=== PATIENT | female | born 2000 | race Two or more races ===

== ENCOUNTER 2025-06-25 14:29 | Inpatient (IN) | payer OTHER ==
[~2025-06-25] VITALS: Ht 175.3 cm; Wt 72.7 kg
[2025-06-25] MEDS ORDERED: ONDANSETRON HCL 4 MG/2 ML VIAL IVP PRN (15:00)
[2025-06-25] MEDS ORDERED: MAGNESIUM HYDROXIDE SUSPENSION 30 ML UDCUP PO PRN (15:00)
[2025-06-25] MEDS ORDERED: SODIUM CHLORIDE 0.9% 1,000 ML IV ONE (15:00)
[2025-06-25] MEDS ORDERED: CLON-592 PO (15:23)
[2025-06-25 15:38] LABS: PLATELET COUNT (AUTO) 290 K/uL (150-450); RED BLOOD CELL COUNT(AUTO) 4.75 MIL/uL (4.00-5.20); RED CELL DISTRIBUTION WIDTH 17.8 % (11.5-14.5); WHITE BLOOD COUNT (AUTO) 6.0 K/uL (4.5-11.0)
[2025-06-25 15:45] LABS: CALCIUM, TOTAL 8.4 mg/dL (8.8-10.5); CREATININE 0.73 mg/dL (0.60-1.30); GLOMERULAR FILTR. RATE CALC > 60 mL/min (>60); GLUCOSE,RANDOM 88 mg/dL (70-110); SODIUM SERUM 138 mmol/L (136-145); UREA NITROGEN, BLOOD 12 mg/dL (7-18)
[2025-06-25 15:51] LABS: ASPARTATE AMINOTRANSFERASE 16.0 U/L (15-37); TOTAL PROTEIN, SERUM 6.9 g/dL (6.4-8.2)
[2025-06-25 15:54] LABS: PLATELET MORPHOLOGY COMMENT GIANT PLTS PRESENT; RBC MORPHOLOGY COMMENT ABNORMAL RBC MORPH
[2025-06-25] MEDS: SODIUM CHLORIDE 0.9% 1,000 ML IV ONE (15:54)
[2025-06-25 15:58] LABS: PATHOLOGY REVIEW, DIFF YES
[2025-06-25] MEDS: FERROUS SULFATE 325 MG EC TABLET PO SCH (17:01)
[2025-06-25] MEDS: ACETAMINOPHEN 325 MG TABLET PO PRN (17:02)
[2025-06-25 20:30] VITALS: BP 93/61; PULSE 72; RESP 18; TEMP 97.9; O2SAT 100
[2025-06-26 04:25] VITALS: BP 106/69; PULSE 58; RESP 18; TEMP 98.2; O2SAT 99
[2025-06-26 06:40] LABS: PH,URINE DRUG SCREEN 7.0 (5.0-8.0)
[2025-06-26 06:47] LABS: ALCOHOL, URINE DRUG SCREEN NEGATIVE (NEGATIVE); AMPHET/METH SCREEN,URINE POSITIVE (NEGATIVE); BARBITURATE SCREEN, URINE NEGATIVE (NEGATIVE); CANNABINOID SCREEN,URINE NEGATIVE (NEGATIVE); COCAINE SCREEN,URINE NEGATIVE (NEGATIVE); METHADONE SCREEN, URINE NEGATIVE (NEGATIVE)
[2025-06-26 07:33] LABS: PLATELET COUNT (AUTO) 278 K/uL (150-450); RED BLOOD CELL COUNT(AUTO) 4.70 MIL/uL (4.00-5.20); RED CELL DISTRIBUTION WIDTH 18.4 % (11.5-14.5); WHITE BLOOD COUNT (AUTO) 5.5 K/uL (4.5-11.0)
[2025-06-26 07:49] LABS: RBC MORPHOLOGY COMMENT ABNORMAL RBC MORPH
[2025-06-26] MEDS ORDERED: ACETAMINOPHEN 325 MG TABLET PO PRN (08:30)
[2025-06-26] MEDS ORDERED: IBUPROFEN 600 MG TABLET PO PRN (08:30)
[2025-06-26] MEDS ORDERED: BACLOFEN 10 MG TABLET PO PRN (08:30)
[2025-06-26] MEDS ORDERED: DICYCLOMINE HCL 10 MG CAPSULE PO PRN (08:30)
[2025-06-26] MEDS ORDERED: ZOLPIDEM TARTRATE 5 MG TABLET PO PRN (08:30)
[2025-06-26] MEDS ORDERED: PROMETHAZINE HCL 25 MG TABLET PO PRN (08:30)
[2025-06-26] MEDS ORDERED: IPRATROPIUM BROMIDE 0.5 MG/2.5 ML NEB SOLUTION NEB PRN (08:30)
[2025-06-26] MEDS ORDERED: MAG HYDROX/ALUMINUM HYD/SIMETH ES 30 ML SUSPENSION UDCUP PO PRN (08:30)
[2025-06-26] MEDS ORDERED: BISACODYL 10 MG RECTAL RECTAL SUPPOSITORY PR PRN (08:30)
[2025-06-26] MEDS ORDERED: LOPERAMIDE HCL 2 MG/15 ML SUSPENSION UDCUP PO PRN (08:30)
[2025-06-26] MEDS ORDERED: MAGNESIUM HYDROXIDE SUSPENSION 30 ML UDCUP PO PRN (08:30)
[2025-06-26] MEDS ORDERED: ONDANSETRON HCL 4 MG/2 ML VIAL IVP PRN (08:30)
[2025-06-26] MEDS ORDERED: ALBUTEROL SULFATE 2.5 MG/0.5 ML NEB SOLUTION NEB PRN (08:30)
[2025-06-26 08:47] VITALS: BP 107/68; PULSE 56; RESP 18; TEMP 97.7; O2SAT 96
[2025-06-26] MEDS: FAMOTIDINE 20 MG TABLET PO SCH (10:25)
[2025-06-26] MEDS: SODIUM CHLORIDE 0.45% 1,000 ML IV SCH (10:26)
[2025-06-26] MEDS: PANTOPRAZOLE SODIUM 40 MG/VIAL IVP SCH (10:27)
[2025-06-26 12:10] VITALS: BP 106/70; PULSE 62; RESP 17; TEMP 98.1; O2SAT 98
[2025-06-26] MEDS: HEPARIN SODIUM,PORCINE 5,000 UNITS/ML VIAL SQ SCH (16:00)
[2025-06-26 19:48] VITALS: BP 100/60; PULSE 69; RESP 18; TEMP 97.3; O2SAT 95
[2025-06-26 23:17] VITALS: BP 105/61; PULSE 74; RESP 18; TEMP 97.7; O2SAT 98
[2025-06-26] MEDS: ZOLPIDEM TARTRATE 5 MG TABLET PO PRN (23:24)
[2025-06-27 04:18] VITALS: BP 110/64; PULSE 60; RESP 18; TEMP 97.3; O2SAT 100
[2025-06-27 05:08] LABS: HEPATITIS C AB (EIA) Non Reactive (Non Reactive)
[2025-06-27 08:00] VITALS: BP 108/65; PULSE 65; RESP 19; TEMP 98.2; O2SAT 100
[2025-06-27 11:12] LABS: % IRON SATURATION 5.7 % (22-44); IRON, SERUM 20.0 mcg/dL (50-175)
[2025-06-27] MEDS ORDERED: FAMO20 PO (17:25)
[2025-06-27] MEDS ORDERED: FERR325T27 PO (17:25)
[2025-06-27] MEDS ORDERED: ACET-2247 PO (17:25)
[2025-06-27] MEDS ORDERED: MAGN-169 PO (17:26)
[2025-06-27 20:21] VITALS: BP 91/53; PULSE 76; RESP 18; TEMP 98.2; O2SAT 100
[2025-06-28 04:15] VITALS: BP 98/65; PULSE 58; RESP 17; TEMP 98.2; O2SAT 99
[2025-06-29] MEDS ORDERED: DOCU-385 PO (17:11)
== END 2025-06-28 09:30 | DRG 917 ==
LOC: EMS 14:29 → EDH 14:49 → CMPBEDREQ 18:33 → 6N 20:20
PROVIDERS: ADMIT Internal Medicine; ATTEND Internal Medicine
DX: T43.651A Poisoning by methamphetamines accidental (unintentional), initial encounter (principal); G92.8 Other toxic encephalopathy; F15.13 Other stimulant abuse with withdrawal; D50.9 Iron deficiency anemia, unspecified; F41.1 Generalized anxiety disorder; Y92.89 Other specified places as the place of occurrence of the external cause
CPT/HCPCS: 80048; 80076; 80307; 83540; 83550; 84703; 85025; 85045; 86803; 87340; 99285; J1644; J2470; J7030

== ENCOUNTER 2025-06-28 09:58 | Inpatient (IN) | payer OTHER ==
[~2025-06-28] VITALS: Ht 172.7 cm; Wt 72.7 kg
[~2025-06-28 09:58] MED LIST: ACET-2247 PO; FAMO20 PO; FERR325T27 PO; MAGN-169 PO
[2025-06-28 11:09] LABS: PLATELET COUNT (AUTO) 303 K/uL (150-450); RED BLOOD CELL COUNT(AUTO) 4.76 MIL/uL (4.00-5.20); RED CELL DISTRIBUTION WIDTH 18.5 % (11.5-14.5); WHITE BLOOD COUNT (AUTO) 6.7 K/uL (4.5-11.0)
[2025-06-28 11:18] LABS: CALCIUM, TOTAL 8.7 mg/dL (8.8-10.5); CREATININE 0.68 mg/dL (0.60-1.30); GLOMERULAR FILTR. RATE CALC > 60 mL/min (>60); GLUCOSE,RANDOM 89 mg/dL (70-110); SODIUM SERUM 139 mmol/L (136-145); UREA NITROGEN, BLOOD 9 mg/dL (7-18)
[2025-06-28 11:22] LABS: % IRON SATURATION 4.1 % (22-44); IRON, SERUM 15.0 mcg/dL (50-175)
[2025-06-28 11:33] LABS: RBC MORPHOLOGY COMMENT ABNORMAL RBC MORPH
[2025-06-28] MEDS: SOD FERRIC GLUC COMPLX/SUCROSE 125 MG in SODIUM CHLORIDE 0.9% 100 ML IV ONE (13:36)
[2025-06-28 16:43] VITALS: BP 98/60; PULSE 74; RESP 16; TEMP 97.7; O2SAT 99
[2025-06-28] MEDS ORDERED: BISACODYL 10 MG RECTAL RECTAL SUPPOSITORY PR PRN (19:00)
[2025-06-28] MEDS ORDERED: IPRATROPIUM BROMIDE 0.5 MG/2.5 ML NEB SOLUTION NEB PRN (19:00)
[2025-06-28] MEDS ORDERED: MAGNESIUM HYDROXIDE SUSPENSION 30 ML UDCUP PO PRN (19:00)
[2025-06-28] MEDS ORDERED: ONDANSETRON HCL 4 MG/2 ML VIAL IVP PRN (19:00)
[2025-06-28] MEDS ORDERED: ACETAMINOPHEN 325 MG TABLET PO PRN (19:00)
[2025-06-28] MEDS ORDERED: ALBUTEROL SULFATE 2.5 MG/0.5 ML NEB SOLUTION NEB PRN (19:00)
[2025-06-28 20:21] VITALS: BP 97/57; PULSE 72; RESP 18; TEMP 98.6; O2SAT 100
[2025-06-28 20:24] VITALS: BP 150/67; PULSE 71; RESP 18; TEMP 98; O2SAT 96
[2025-06-28] MEDS: SODIUM CHLORIDE 0.9% 1,000 ML IV SCH (20:49)
[2025-06-29 04:21] VITALS: BP 105/59; PULSE 58; RESP 18; TEMP 98.1; O2SAT 99
[2025-06-29] MEDS: PANTOPRAZOLE SODIUM 40 MG DR TABLET PO SCH (08:17)
[2025-06-29 08:48] VITALS: BP 105/54; PULSE 65; RESP 18; TEMP 98.4; O2SAT 99
[2025-06-29 10:07] LABS: HEPATITIS C AB (EIA) Non Reactive (Non Reactive)
[2025-06-29] MEDS: SOD FERRIC GLUC COMPLX/SUCROSE 125 MG in SODIUM CHLORIDE 0.9% 100 ML IV SCH (13:04)
[2025-06-29] MEDS: LACTULOSE 20 GM/30 ML SOLUTION UDCUP PO ONE (16:34)
[2025-06-29] MEDS ORDERED: DOCU-385 PO (17:11)
[2025-06-29 19:40] VITALS: BP 106/61; PULSE 77; RESP 18; TEMP 98.7; O2SAT 98
[2025-06-29] MEDS: DOCUSATE SODIUM 100 MG/10 ML LIQUID UDCUP PO SCH (19:57)
[2025-06-29] MEDS: ZOLPIDEM TARTRATE 5 MG TABLET PO PRN (20:59)
[2025-06-30 03:22] VITALS: BP 101/59; PULSE 71; RESP 18; TEMP 98.5; O2SAT 97
== END 2025-06-30 07:40 | DRG 897 ==
LOC: EMS 10:00 → EDH 11:57 → 6N 16:38
PROVIDERS: ADMIT Hospitalist; ATTEND Hospitalist
DX: F15.93 Other stimulant use, unspecified with withdrawal (principal); D50.9 Iron deficiency anemia, unspecified; F19.10 Other psychoactive substance abuse, uncomplicated; F43.21 Adjustment disorder with depressed mood
CPT/HCPCS: 74176; 76700; 76856; 80048; 83540; 83550; 85025; 86803; 87340; 99285; J2916; J7030; J7050